=== PATIENT | male | born 1965 | race Caucasian/White ===

== ENCOUNTER 2021-04-17 14:12 | Emergency (ER) | payer MEDICAID ==
[~2021-04-17] VITALS: Ht 180.3 cm; Wt 64.9 kg
--- NOTE | 2021-04-17 14:28 | NUR ---
OUSMANE TO ER BED 13. PT WALKED TO A FIRE STATION. AWAKE, ALERT BUT SMELLS OF ALCOHOL. NOT IN RESP DISTRESS. AMBULATORY. CAME IN FOR SUICIDAL IDEATION WITH THOUGHTS OF JUMPING OFF BRIDGE. PT IS GOWN, BELONGINGS IN LOCKER AND SIITER AT BEDSIDE. SECURITY AT BEDSIDE FOR WANDING. URINE COLLECTED AND SENT TO LAB
--- NOTE | 2021-04-17 14:32 | NUR ---
SECURITY CALLED FOR PATIENT WANDING
[2021-04-17 14:38] LABS: BILIRUBIN,URINE Negative (NEGATIVE); COLOR,URINE YELLOW (YELLOW); LEUKOCYTE ESTERASE ,URINE Negative (NEGATIVE); NITRITE, URINE Negative (NEGATIVE); PROTEIN,URINE Negative (NEGATIVE); UGLUCOSE Negative (NEGATIVE); UROBILINOGEN,URINE 0.2 EU/dL (0.2)
[2021-04-17 14:41] LABS: BACTERIA,URINE Rare /HPF (None Seen); RBC,URINE 0-2 /HPF (0-2); SQUAMOUS EPITHELIAL CELL,UR Rare /HPF (None Seen); WBC,URINE 0-2 /HPF (0-3)
[2021-04-17 15:00] LABS: BASOPHILS # (AUTO) 0.1 K/uL (0.0-0.2); BASOPHILS % (AUTO) 1.5 % (0.0-2.0); EOSINOPHILS % (AUTO) 3.5 % (0.0-6.0); HEMATOCRIT 35 % (39-51); HEMOGLOBIN 12.2 g/dL (13.5-17.5); LYMPHOCYTES # (AUTO) 1.6 K/uL (0.8-4.8); LYMPHOCYTES % (AUTO) 24.1 % (20.0-44.0); MEAN CORPUSCULAR HGB CONC 34 g/dl (31.0-36.0); MEAN CORPUSCULAR VOLUME 107 fL (80-96); MONOCYTES # (AUTO) 0.4 K/uL (0.1-1.30); MONOCYTES % (AUTO) 5.5 % (2.0-12.0); NEUTROPHILS # (AUTO) 4.3 K/uL (1.8-8.9); NEUTROPHILS % (AUTO) 65.4 % (43.0-81.0); PLATELET COUNT (AUTO) 209 K/uL (150-450); RED BLOOD CELL COUNT(AUTO) 3.29 MIL/uL (4.5-6.0); WHITE BLOOD COUNT (AUTO) 6.5 K/uL (4.3-11.0)
[2021-04-17 15:14] LABS: ALANINE AMINOTRANSFERASE 13 U/L (12-78); ALBUMIN 3.6 g/dL (3.4-5.0); ALCOHOL, BLOOD 315 mg/dL (0-0); ALKALINE PHOSPHATASE 95 U/L (46-116); ASPARTATE AMINOTRANSFERASE 27 U/L (15-37); BILIRUBIN,DIRECT 0.1 mg/dL (0.0-0.2); BILIRUBIN,TOTAL 0.2 mg/dL (0.2-1.0); CALCIUM, SERUM 8.3 mg/dL (8.5-10.1); CARBON DIOXIDE 22 mmol/L (21-32); CHLORIDE 102 mmol/L (98-107); CREATININE 1.7 mg/dL (0.6-1.3); GLUCOSE 73 mg/dL (74-106); POTASSIUM 3.8 mmol/L (3.5-5.1); SODIUM SERUM 136 mmol/L (136-145); TOTAL PROTEIN, SERUM 7.3 g/dL (6.4-8.2); UREA NITROGEN, BLOOD 24 mg/dL (7-18)
[2021-04-17 15:15] LABS: ACETAMINOPHEN < 0 ug/ml (10-30)
--- NOTE | 2021-04-17 15:25 | NUR ---
Senior Network Engineer consult: child and family services worker consult requested for suicidal ideation, homelessness and substance use. Patient is a 56-year-old, male. SW met with patient at his bedside in the emergency department. Patient presented tearful and stated, "no one cares about me." Patient was alert and oriented x4. Per chart, patient presented to a fire station on 04/17/21 and stated that he was feeling suicidal with a plan to jump off a bridge. SW asked the patient if he is currently feeling suicidal. Patient stated that he has been feeling hopeless and reported that he does not have current suicidal ideation but is seeking psychiatric treatment. Patient denied homicidal ideation. SW asked the patient if he would consider going voluntarily to an inpatient psychiatric hospital for further evaluation. Patient agreed with this plan. Patient reported that he is currently homeless and lives in his car. Patient stated that he drove his car to the fire station and reported that he was having suicidal ideation, earlier today. SW asked the patient if he currently has a source of income and patient reported that he receives food stamps and [employer]. SW assessed the patients history of mental illness and patient reported a history of Depression. SW asked the patient if he is taking any psychiatric medication and patient stated, I dont want to take meds. SW asked the patient if he has a history of substance use. Patient reported cannabis and alcohol use and stated, I use it whenever I can get it. Patient reported that he used cocaine in the past, years ago. SW offered the patient homeless, substance use and outpatient mental health resources. Patient accepted the resources and thanked SW. Patient signed the homeless waiver and SW filed the waiver in the patients chart. RUTH will fax clinicals to [facility] for review. PLAN: SW will fax clinicals to [facility] for review. No further SS intervention at this time, however, SS will remain available as needed. RESOURCES: Year-round shelters: [facility] [place] [address] [place] [address] ; [facility] [place] [address] [place] [address]; [facility] [id number] [facility] [address] SPA 4 | [facility] Provider: [facility] Address: [address] [place] [address] # of Beds: 48 Population Served: [facility] Provider: [facility] Serve Address: [address] [facility], [address] # of Beds: 73 Population Served: [facility] 6 | [facility] Provider: [facility] at Last Address: [address] [facility], [address] # of Beds: 63 Population Served: [facility] 3 | [facility] Provider: [facility] [place] Address: [address] [facility], [address] # of Beds: 75 Population Served: [facility] 8 | [facility] Provider: [facility] [place] Address: [address] [facility] [place], [address] # of Beds: 80 Population Served: [facility] 1 | [facility] Provider: [facility] [place] Address: [address] [place] [address], [address] # of Beds: 85 Population Served: [facility] 2 | [facility] Provider: [facility] Address: Confidential (please call for location) # of Beds: 52 Population Served: [facility] 4 | [facility] Provider: [facility] Address: [address] [facility], [address] # of Beds: 49 Population Served: [facility] Provider: [facility] Address: [address] [facility], [address] # of Beds: 27 Population Served: [facility] Hygiene: [facility]: [address] [place] ; [facility] [address] [facility] ; [facility] [address] . Food Resources: [place] [facility] at [facility]- [address] [place]; Meet Each Need with Dignity (MEND) [address] [facility]; [facility] [address] [facility]; [facility] [address] [facility] [place]. Mental Health resources provided: [facility] [address] [place] [address] ; [facility] [place] [address] [facility] [address], [place], [place] [id number] ; [facility] [address] [facility] [place] [address] ; [facility] [place], [place] [id number] Healthcare Clinics: [facility] [address] [facility], [address] [place]. [place] ; [facility] [address] [place] [address]; [facility] [address] [facility] [place] [address] [phone] Counseling--Outpatient [facility] [address], [place] [address] (Specializes in in-depth psychotherapy for emotional distress: anxiety, depression, interpersonal conflicts, life transitions, childhood abuse) PSYCHIATRIC OUTPATIENT SERVICES [facility] Partial Hospitalization and Intensive Outpatient Program (Managed Care and [place] Only) [address] [facility] [phone] [facility] Partial Hospitalization and Outpatient Program [address] [place] [address] [facility] Partial Hospitalization and Outpatient Program [address] [place], [place] [id number] [facility] [address] [facility]. [address] [place], [place] [id number] [facility] Partial Hospitalization and Outpatient Program [address] [address] [facility] [place], [place] [phone] Substance use resources provided included: [facility] Substance Abuse Self-Helpline (SAS) ; [facility] [address] [facility] [place] [address] ; [facility] [address] [facility] [address] ; [facility] [address] [facility] [address] ; [facility] [address] [facility] [address] ; [facility] [address] [facility] [phone] ; [facility] [place]; [facility] [place]; [place]; Alcoholics Anonymous -[facility]
--- NOTE | 2021-04-17 15:35 | NUR ---
Auto Research Engineer note: RUTH faxed clinicals to [facility], , for review. ED clinical staff pharmacist to fax serology report when available.
[2021-04-17 16:31] LABS: EOSINOPHILS % (MANUAL) 4 % (0-4); LYMPHOCYTES % (MANUAL) 25 % (16-48); MONOCYTES % (MANUAL) 6 % (0-11.0); NEUTROPHILS % (MANUAL) 65 (42-76)
--- NOTE | 2021-04-17 19:44 | NUR ---
PT OK TO DISCHARGE PER DR ARMIJO. PT PICKED UP BY FRIEND. DENIES SI HI. Patient discharged to home in stable condition. Written and verbal after care instructions given. Patient verbalizes understanding of instruction.Patient is awake and alert to self, day, and place. PT ambulatory with a steady gait
[2021-04-17 19:45] VITALS: BP 135/71
== END 2021-04-17 19:45 ==
LOC: ER 14:12
DX: F10.129 Alcohol abuse with intoxication, unspecified (principal); Y90.8 Blood alcohol level of 240 mg/100 ml or more; F32.9 Major depressive disorder, single episode, unspecified; R45.851 Suicidal ideations; I10 Essential (primary) hypertension; Z59.0 Homelessness; Z20.822 Contact with and (suspected) exposure to COVID-19
CPT/HCPCS: 36415; 80048; 80076; 80143; 80307; 80320; 81001; 85007; 85025; 87426; 99283; C9803; G0480